=== PATIENT | male | born 1945 | race Caucasian/White ===

== ENCOUNTER 2017-05-13 10:45 | Emergency (ER) | payer MEDICARE, BC ==
[2017-05-13] MEDS ORDERED: Aspirin 81 MG Tab.Chew PO ONE (10:50)
[2017-05-13 10:57] VITALS: BP 174/99
--- NOTE | 2017-05-13 13:55 | CR ---
INDICATION: Chest pain. CHEST: Portable AP upright view of the chest 05/13/2017. No comparisons were available. The heart is generous in size and may be slightly enlarged. The aorta is minimally calcified in the arch area. Bipolar pacemaker leads are noted and include a stimulator lead. An active infiltrate or effusion was not identified. Post median sternotomy change is noted. IMPRESSION: ASHD, cardiomegaly, bipolar pacemaker leads with stimulator, post median sternotomy, with no definite acute process. MTDD
--- NOTE | 2017-05-17 10:34 | ER ---
DATE SEEN: 05/13/2017 The patient was seen at 1100 hours. HISTORY: This 72-year-old complains he has chest heaviness after he walks 100 to 150 feet. Yesterday went to the [facility] and PCM ICD reprogrammed. Since then, he has noted dyspnea and mild lightheadedness and chest heaviness with exertion. He has a past medical history of 2 CABG surgeries, 1 vessel the first time and 3 vessels the second time. He has had congestive heart failure and he has an ejection fraction apparently at one point as low as 18%, which has improved. He denies having any ablation for atrial fibrillation. He has had this pacemaker for 6 months. PAST MEDICAL HISTORY: Dyslipidemia, hypertension, myocardial infarction, pacemaker placement with left bundle branch block, gout, prostatism, outlet obstruction, depression, hypothyroidism, and arthritis. FAMILY HISTORY: Mother of congestive heart failure, age of 52; father aged 72, of cancer of the bladder. He has several siblings who are healthy. The patient has a diagnosis of ichthyosis, left lower extremity dermis. He said today's chest discomfort was very similar to what he experienced after the first angioplasty that resulted in reocclusion of one of his coronary arteries and subsequent CABG surgery. This morning, the patient noted he got dizzy after getting up and going to the car and walking 100 feet to his car. He had 2/10 chest discomfort. He has an appointment for the pacemaker clinic to be rechecked at 1330 hours this afternoon. He has called the pacemaker clinic and let them know of his chest discomfort. CURRENT MEDICATIONS: 1. Atorvastatin daily. 2. Vitamin E. 3. Tadalafil (Cialis) 5 mg p.r.n. 4. Saw palmetto. 5. Nitroglycerin p.r.n. 6. Metoprolol succinate (Toprol-XL 50 mg daily). 7. Levothyroxine 175 mcg daily. 8. Glucosamine/chondroitin. 9. Fluoxetine (Prozac) 20 mg daily. 10. Vitamin D. 11. Aspirin 81 mg. 12. Ascorbic acid 1000 mg daily. 13. Allopurinol 300 mg daily. 14. Fish oil. 15. Watson oil 1000 mg daily. REVIEW OF SYSTEMS: HEENT: Negative. Denies headache or compromise in vision, sinus congestion, fever, sore throat, neck stiffness. CARDIORESPIRATORY: As above. He denies syncope, near syncope, palpitations, tachycardia, diaphoresis, nausea, vomiting, diarrhea, referred chest pain. GI: Denies reflux, acid peptic disease, gallbladder disease, fatty food intolerance, diarrhea, constipation, blood in the stool or black tarry stools. : Mild decrease in hesitation of urination. MUSCULOSKELETAL: Mild arthritis, generalized. NEURO: Negative. PHYSICAL EXAMINATION: VITAL SIGNS: Blood pressure 174/99, heart rate 62, respirations 14, oxygen saturation 97%, 111.13 kilos. GENERAL: A large mesomorphic man in no acute distress. He has a mild vargas. Pharynx without abnormality. Gag is in place. Uvula midline. Tongue is normal. No cervical adenopathy. No thyromegaly. No masses in the neck. LUNGS: Clear to auscultation without rales, rhonchi, or wheezes. HEART: Sinus rhythm. 62 beats per minute. Dual chamber pacemaker noted on EKG. ABDOMEN: Soft, nontender. No guarding. No abdominal discomfort. EXTREMITIES: Without edema. Deep tendon reflexes, normal upper and lower extremities. NEUROLOGIC: Cranial nerves 2 through 12 intact. Oriented. Gait, normal muscle strength, no dysmetria. No pronator drift. Romberg's negative. LABORATORY FINDINGS: Hemoglobin 14.9, white count 8400, PMNs normal at 62, lymphocytes 24, monos 9, eosinophils 5, platelets 195,000. INR 1.25 and D-dimer is 171. Complete metabolic panel is normal except for BUN slightly elevated at 26. BUN and creatinine ratio 23.6. GFR greater than 60. AST 35, ALT 50, alkaline phosphatase 41, troponin less than 0.01. Albumin slightly high at 4.7, globulin normal at 2.8. ASSESSMENT: 1. Demand pacemaker program needs to be reset, as he gets lightheaded and has chest discomfort at 100 to 150 feet. Perhaps needs to be increased to higher level instead of 72, it should be 82 or 84. 2. Left bundle branch block. 3. Coronary artery disease with 2 CABG surgeries, total of 4 vessel bypass. 4. Hypertension. 5. Mildly overweight. BMI 31.5 kilos/m2, 111 kilos. 6. Gout. 7. Depression. 8. Hypothyroidism, treated. 9. Arthritis. 10.Family history of heart failure. Mother at age 52 of congestive heart failure. 11.Previous documented very low ejection fraction (the patient said it was 18%). 12.Incidental diagnosis of ichthyosis with stasis dermatitis, left lower extremity. PLAN: Status has been discussed with the pacemaker clinic. He has an appointment this afternoon at 1330 hours. He is to keep that appointment and avoid walking further than 75 feet to diminish the angina that he is experiencing. /[id number] ANGELINA/LYNDSAY PIERCE
== END 2017-05-13 11:25 | disposition home or self-care (01) ==
LOC: FB.ED 10:45
DX: R07.9 Chest pain, unspecified (principal); R42 Dizziness and giddiness; I44.7 Left bundle-branch block, unspecified; I25.810 Atherosclerosis of coronary artery bypass graft(s) without angina pectoris; I25.2 Old myocardial infarction; I10 Essential (primary) hypertension; F32.9 Major depressive disorder, single episode, unspecified; E03.9 Hypothyroidism, unspecified; M19.90 Unspecified osteoarthritis, unspecified site; E66.3 Overweight; Z68.31 Body mass index [BMI] 31.0-31.9, adult; M10.9 Gout, unspecified; Z95.0 Presence of cardiac pacemaker; Z95.1 Presence of aortocoronary bypass graft; Z79.899 Other long term (current) drug therapy
CPT/HCPCS: 36415; 71010; 80053; 84484; 85025; 85379; 85610; 93005; 99285; A9270; 99284

== ENCOUNTER 2017-07-25 16:52 | Emergency (ER) | payer BC, MEDICARE, OTHER ==
--- NOTE | 2017-07-25 17:59 | EDM.PDOC ---
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 Treatments [employer]: Reports: Cold Therapy Right Upper Head Pain Score (Numeric/FACES): 3 - Related Data Allergies Allergy/AdvReac Type Severity Reaction Status Date / Time No Known Allergies Allergy Verified 07/25/17 17:02 Home Meds: Home Meds Allopurinol [Zyloprim] 300 mg PO DAILY 09/14/13 [History] Ascorbic Acid [Vitamin C] 1,000 mg PO DAILY 09/14/13 [History] Aspirin 81 mg PO DAILY 09/14/13 [History] Cholecalciferol (Vitamin D3) [Vitamin D3] 3,000 unit PO DAILY 09/14/13 [History] FLUoxetine [PROzac] 20 mg PO DAILY 09/14/13 [History] Gluc HCl/Csa/Mayo Hy/Hyalur Ac [Glucosamine Chondroitin] 1 each PO DAILY [History] Levothyroxine 175 mcg PO ACBRK 09/14/13 [History] Metoprolol Succinate [Toprol XL] 50 mg PO DAILY 09/14/13 [History] Nitroglycerin [Nitrostat] 0.4 mg SL PRN 09/14/13 [History] [place]-3/DHA/Epa/Fish Oil [Fish Oil Dr 500 mg Softgel] 1,000 mg PO DAILY [History] Saw Alba 160 mg PO DAILY 09/14/13 [History] Tadalafil [Cialis] 5 mg PO ASDIRECTED PRN 09/14/13 [History] Vitamin E 400 unit PO DAILY 09/14/13 [History] atorvaSTATin [Lipitor] 1 mg PO DAILY 09/14/13 [History] Past Medical History Cardiovascular History: Reports: Heart Failure, Pacemaker, Prior Cardiac Arrest Genitourinary History: Reports: Prostate Disorder Psychiatric History: Reports: Depression Endocrine/Metabolic History: Reports: Hypothyroidism, Obesity/BMI 30+, Vitamin D Deficiency - Infectious Disease History Infectious Disease History: Reports: Measles - Past Surgical History Cardiovascular Surgical History: Reports: AICD Social & Family History - Family History Family Medical History: Noncontributory - Tobacco Use Smoking Status *Q: Never Smoker Used Tobacco, but Quit: Yes Month Tobacco Last Used: QUIT A FEW YEARS AGO - Caffeine Use Caffeine Use: Reports: Coffee - Recreational Drug Use Recreational Drug Use: No ED ROS GENERAL - Review of Systems Review Of Systems: See Below Constitutional: Reports: No Symptoms HEENT: Reports: No Symptoms Respiratory: Reports: No Symptoms Cardiovascular: Reports: No Symptoms Endocrine: Reports: No Symptoms GI/Abdominal: Reports: No Symptoms : Reports: No Symptoms Musculoskeletal: Reports: No Symptoms Skin: Reports: Wound Neurological: Reports: No Symptoms Psychiatric: Reports: No Symptoms Hematologic/Lymphatic: Reports: No Symptoms Immunologic: Reports: No Symptoms ED EXAM, HEAD INJURY - Physical Exam Exam: See Below Exam Limited By: No Limitations General Appearance: Alert, WD/WN, No Apparent Distress Head: Other (superficial abrasion at R frontal with 5 x 4 x 1.5 cm sub edema without hematoma, skull NT adjacent to subc edema, minimal tender at edema c/w soft tissue injury) Eyes: Bilateral Eye: EOMI, PERRL Ears: Normal External Exam, Normal Canal, Hearing Grossly Normal, Normal TMs Nose: Normal Inspection, Normal Mucousa, No Blood Throat/Mouth: Normal Inspection, Normal Lips, Normal Teeth, Normal Gums, Normal Oropharynx, Normal Voice, No Airway Compromise Neck: Non-Tender, Full Range of Motion, Normal Alignment, Normal Inspection Respiratory: No Respiratory Distress, Lungs Clear, Normal Breath Sounds, No Accessory Muscle Use, Chest Non-Tender Cardiovascular: Regular Rate, Rhythm, No Edema, No JVD, No Murmur, No Rub GI/Abdominal Exam: Soft, Non-Tender Back Exam: Normal Inspection Extremities: Normal Inspection, Normal Range of Motion, Non-Tender, No Pedal Edema 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 As Tested, No Motor/Sensory Deficits, Alert, Normal Mood/Affect, Oriented x 3, Other (nonfocal neuro exam) - [place] Coma Score Best Eye Response (Deilia): (4) Open Spontaneously Best Verbal Response (Edilia): (5) Oriented Best Motor Response (Edilia): (6) Obeys Commands Course - Vital Signs Last Recorded V/S: Last Vital Signs Temp 36.6 C 07/25/17 17:06 Pulse 62 07/25/17 17:06 Resp 16 07/25/17 17:06 BP 177/85 H 07/25/17 17:06 Pulse Ox 98 07/25/17 17:06 - Re-Assessments/Exams Free Text/Narrative Re-Assessment/Exam: 07/25/17 17:58 pt aware that a intracranial bleed cannot be excluded, has a completely nl neuro exam, does not meet criteria for head CT altho pt told that we will need to obtain one if he is feeling worse at any time. Pt has ibuprofen 800 mg at home. Departure - Departure Time of Disposition: 17:59 Disposition: Home, Self-Care 01 Condition: Good Clinical Impression: Head contusion - Discharge Information Instructions: Head Injury, Adult, [id number] Referrals: Oni Cardenas MD [Primary Care Provider] - Additional Instructions: Take ibuprofen 800 mg tonight and then 1 tab 3 times tomorrow. Continue ice for 15 minutes every 2 hours tonight. Rest. No work tomorrow. May return to work in 2 days if feeling 100% better. See your doctor in 2 days if not 100% better. If feeling worse or have severe headache not controlled with meds or nausea and vomiting for over 1 hour or coordination difficulties, you will need to return to the ED. It is possible to have a blood vessel inside the head that bleeds slowly and shows up later. Have your check on you every 4 hours for the next 24 ours. Call your Physician or Return to Emergency Department if: * Your condition worsens in any way. * You develop fever greater than 100.4. * You have vomitting that does not stop with medications. * You have pain that is not controlled with medications.
[2017-07-25 18:05] VITALS: BP 162/82
== END 2017-07-25 18:05 | disposition home or self-care (01) ==
LOC: FB.ED 16:52
DX: S00.93XA Contusion of unspecified part of head, initial encounter (principal); S00.81XA Abrasion of other part of head, initial encounter; I50.9 Heart failure, unspecified; E03.9 Hypothyroidism, unspecified; Z87.891 Personal history of nicotine dependence; Z79.899 Other long term (current) drug therapy; Z79.82 Long term (current) use of aspirin; X58.XXXA Exposure to other specified factors, initial encounter; Y92.69 Other specified industrial and construction area as the place of occurrence of the external cause; Y99.0 Civilian activity done for income or pay
CPT/HCPCS: 99283

== ENCOUNTER → 2022-08-31 | Day surgery (SDC) | payer BC, MEDICARE ==
[~2022-08-31] MED LIST: Bupivacaine 0.25% 30 ML SDV INJECT ONE; Lactated Ringers 1,000 ML IV ONE; Lactated Ringers 1,000 ML IV SCH; Lidocaine 1% with EPINEPHrine 1:100,000 20 ML MDV INJECT ONE; Midazolam 1 MG/ML 2 ML SDV IV ONE; Ondansetron 4 MG/2 ML SDV IVPUSH ONE; Propofol 200 MG/20 ML SDV IV ONE; Sodium Chloride 0.9% 10 ML Syringe FLUSH PRN; fentaNYL 100 MCG/2 ML SDV IV ONE
[2022-08-31 11:41] VITALS: PULSE 60
[2022-08-31 12:52] VITALS: BP 136/66
== END | disposition home or self-care (01) ==
LOC: FB.SDS 08:53
PROVIDERS: ATTEND Surgery
DX: N62 Hypertrophy of breast (principal); I50.9 Heart failure, unspecified; Z79.899 Other long term (current) drug therapy; Z79.890 Hormone replacement therapy
CPT/HCPCS: 00400; 19301; 88305; J2250; J2405; J2704; J3010; J3490; J7120